=== PATIENT | female | born 1970 | race Caucasian/White ===

== ENCOUNTER 2017-12-29 12:27 | Emergency (ER) | END 2017-12-29 13:30 | disposition home or self-care (01) ==

== ENCOUNTER 2018-02-12 16:42 | Emergency (ER) | END 2018-02-12 20:09 | disposition home or self-care (01) ==

== ENCOUNTER 2018-02-15 00:19 | Emergency (ER) | END 2018-02-15 01:45 | disposition home or self-care (01) ==